=== PATIENT | female | born 1945 | race Caucasian/White ===

== ENCOUNTER 2018-01-29 18:03 | Emergency (ER) | payer SELFPAY ==
[~2018-01-29] VITALS: Ht 152.4 cm; Wt 80.0 kg
[2018-01-29] MEDS ORDERED: insulin (18:26)
[2018-01-29] MEDS ORDERED: TAMO10TA4 PO (18:26)
[2018-01-29] MEDS ORDERED: BENA5TAB6 PO (18:26)
[2018-01-29] MEDS ORDERED: SODIUM CHLORIDE 0.9% 1,000 ML IV ONE (19:19)
[2018-01-29] MEDS ORDERED: ONDANSETRON HCL 4MG/2ML VIAL IV STA (19:19)
[2018-01-29] MEDS ORDERED: ONDANSETRON HCL 4MG/2ML VIAL IV ONE (19:30)
[2018-01-29 22:20] VITALS: BP 166/62
== END 2018-01-29 22:55 | disposition home or self-care (01) ==
LOC: ER 18:03
DX: R51 Headache (principal); R42 Dizziness and giddiness; M79.602 Pain in left arm
CPT/HCPCS: 70450; 72125; 96361; 96374; 99284; J7030; Z7610; J2405

== ENCOUNTER 2018-10-16 10:06 | Inpatient (IN) | payer MEDICARE, MEDICAID ==
[~2018-10-16] VITALS: Ht 152.4 cm; Wt 68.0 kg
[~2018-10-16 10:06] MED LIST: BENA5TAB6 PO; TAMO10TA4 PO; insulin
[2018-10-16 11:34] LABS: BASOPHILS % 0.9 % (0.0-2.0); EOSINOPHILS % 1.6 % (0.0-5.0); HEMATOCRIT. 39.2 % (36.0-48.0); HEMOGLOBIN. 12.6 g/dL (12.0-16.0); LYMPHOCYTES % 20.3 % (20.0-50.0); MEAN CORPUSCULAR HEMOGLOBIN 26.2 pg (28.0-32.0); MEAN CORPUSCULAR VOLUME 81.6 fL (81.0-99.0); MEAN PLATELET VOLUME 8.7 fl (7.4-10.4); MONOCYTES % 4.7 % (2.0-8.0); NEUTROPHILS % 72.5 % (40.0-76.0); PLATELET 247 x1000/uL (130-400); RED BLOOD CELL COUNT 4.81 mill/uL (4.2-5.4); RED CELL DISTRIBUTION WIDTH 14.4 % (11.6-14.6)
[2018-10-16 11:41] LABS: CHLORIDE 105 mEq/L (98-107)
[2018-10-16 11:47] LABS: ETHANOL BLOOD < 10 mg/dL
[2018-10-16 11:52] LABS: CLARITY URINE CLEAR (CLEAR); COLOR URINE YELLOW (YELLOW); KETONES URINE NEGATIVE (NEGATIVE); LEUKOCYTE ESTERASE URINE TRACE (NEGATIVE); NITRITE URINE NEGATIVE (NEGATIVE); OCCULT BLOOD URINE TRACE (NEGATIVE); PROTEIN URINE NEGATIVE (NEGATIVE); SPECIFIC GRAVITY URINE 1.032 (1.005-1.030); UROBILINOGEN URINE 0.2 E.U./dL (0.2-1.0)
[2018-10-16 12:42] LABS: *AMPHETAMINES SCREEN URINE NEGATIVE (NEGATIVE); *BARBITURATES SCREEN URINE NEGATIVE (NEGATIVE)
[2018-10-16 12:43] LABS: *BENZODIAZEPINES SCREEN URINE NEGATIVE (NEGATIVE); *COCAINE SCREEN URINE NEGATIVE (NEGATIVE); OPIATES URINE SCREEN NEGATIVE (NEGATIVE); PHENCYCLIDINE URINE SCREEN NEGATIVE (NEGATIVE)
[2018-10-16 12:44] LABS: CANNABINOID URINE SCREEN NEGATIVE (NEGATIVE)
[2018-10-16 12:45] LABS: METHADONE URINE SCREEN NEGATIVE (NEGATIVE)
[2018-10-16] MEDS ORDERED: CEFTRIAXONE 1 G PREMIX 50 ML IV ONE (13:30)
[2018-10-16 15:50] VITALS: BP 136/58
[2018-10-16 16:00] VITALS: BP 136/58
[2018-10-16] MEDS ORDERED: PNEUMOCOCCAL 23-VAL P-SAC VAC 0.5 ML IM ONE (16:15)
[2018-10-16] MEDS ORDERED: ATOR20TA65 PO (16:23)
[2018-10-16] MEDS ORDERED: EMPA1TAB11 PO (16:23)
[2018-10-16] MEDS ORDERED: AMLO10TA80 PO (16:23)
[2018-10-16] MEDS ORDERED: BENA40TA9 PO (16:23)
[2018-10-16] MEDS ORDERED: INSU200I4 SQ (16:23)
[2018-10-16] MEDS ORDERED: NA PHOS,M-B/NA PHOS,DI-BA ENEMA 118ML PR PRN (18:00)
[2018-10-16] MEDS ORDERED: IPRATROPIUM/ALBUTEROL 0.5-3(2.5)MG/3ML NEB INH PRN (18:00)
[2018-10-16] MEDS ORDERED: MAGNESIUM/ALUMINUM HYDROXIDE/SIMETHICONE 30ML UDC PO PRN (18:00)
[2018-10-16] MEDS ORDERED: ACETAMINOPHEN 325MG TABLET PO PRN (18:00)
[2018-10-16] MEDS ORDERED: HYDROCODONE/ACETAMINOPHEN 10/325MG TABLET PO PRN (18:00)
[2018-10-16] MEDS ORDERED: DIPHENHYDRAMINE 50MG/ML VIAL IV PRN (18:00)
[2018-10-16] MEDS ORDERED: LORAZEPAM 2MG/ML CPJ IV PRN (18:00)
[2018-10-16] MEDS ORDERED: CLONIDINE 0.1MG TABLET PO PRN (18:00)
[2018-10-16] MEDS ORDERED: DOCUSATE SODIUM 100MG CAPSULE PO PRN (18:00)
[2018-10-16] MEDS ORDERED: DEXTROSE 50% WATER 50ML SYRINGE IV PRN (18:00)
[2018-10-16] MEDS ORDERED: GUAIFENESIN 200MG/10ML SUGAR FREE UDC PO PRN (18:00)
[2018-10-16] MEDS ORDERED: HYDROMORPHONE HCL/PF 2MG/ML CPJ IV PRN (18:00)
[2018-10-16] MEDS ORDERED: HYDRALAZINE 20MG/ML VIAL IV PRN (18:00)
[2018-10-16] MEDS ORDERED: ONDANSETRON HCL 4MG/2ML INJ IV PRN (18:00)
[2018-10-16] MEDS ORDERED: ENOXAPARIN 40MG/0.4ML SYR SUBCUT SCH (19:00)
[2018-10-16 20:00] VITALS: BP 145/51
[2018-10-16] MEDS: BLOOD SUGAR DIAGNOSTIC STRIP TEST SCH (20:29)
[2018-10-16] MEDS: SODIUM CHLORIDE 0.9% INJ 3ML FLUSH IVF SCH (20:53)
[2018-10-16] MEDS ORDERED: INSULIN LISPRO 100 UNITS/ML SUBCUT SCH (21:00)
[2018-10-16] MEDS ORDERED: INSULIN LISPRO 100 UNITS/ML SUBCUT NR (21:30)
[2018-10-16 23:07] LABS: CREATINE KINASE 51 IU/L (26-192)
[2018-10-16 23:08] LABS: CREATINE KINASE MB FRACTION < 1.0 ng/mL (0.5-3.6)
[2018-10-17] VITALS (7 sets, daily range): BP systolic 130–169; BP diastolic 48–71
[2018-10-17 06:25] LABS: BASOPHILS % 0.5 % (0.0-2.0); EOSINOPHILS % 2.6 % (0.0-5.0); HEMATOCRIT. 42.8 % (36.0-48.0); HEMOGLOBIN. 13.7 g/dL (12.0-16.0); LYMPHOCYTES % 41.6 % (20.0-50.0); MEAN CORPUSCULAR HEMOGLOBIN 26.1 pg (28.0-32.0); MEAN CORPUSCULAR VOLUME 81.4 fL (81.0-99.0); MEAN PLATELET VOLUME 9.3 fl (7.4-10.4); MONOCYTES % 8.3 % (2.0-8.0); PLATELET 270 x1000/uL (130-400); RED BLOOD CELL COUNT 5.25 mill/uL (4.2-5.4); RED CELL DISTRIBUTION WIDTH 14.4 % (11.6-14.6)
[2018-10-17 06:44] LABS: CHLORIDE 107 mEq/L (98-107)
[2018-10-17] MEDS: BLOOD SUGAR DIAGNOSTIC STRIP TEST SCH ×3 (06:47→17:04)
[2018-10-17] MEDS: INSULIN LISPRO 100 UNITS/ML SUBCUT SCH ×2 (06:48→12:31)
[2018-10-17 07:00] LABS: CREATINE KINASE MB FRACTION < 1.0 ng/mL (0.5-3.6)
[2018-10-17 07:01] LABS: LDL CHOLESTEROL 93 mg/dL (5-100)
[2018-10-17 07:02] LABS: CREATINE KINASE 53 IU/L (26-192); HDL CHOLESTEROL 50 mg/dL (40-59); T4 FREE 1.16 ng/dL (0.76-1.46)
[2018-10-17] MEDS: SODIUM CHLORIDE 0.9% INJ 3ML FLUSH IVF SCH ×2 (07:43→13:45)
[2018-10-17] MEDS ORDERED: ASPIRIN 81MG EC TABLET PO SCH (09:00)
== END 2018-10-17 18:25 | disposition home or self-care (01) | DRG 690 ==
LOC: ER 10:18 → 5WST 13:32 → ENRESERV 14:15
PROVIDERS: ADMIT Internal Medicine; ATTEND Internal Medicine
DX: N39.0 Urinary tract infection, site not specified (principal); G45.9 Transient cerebral ischemic attack, unspecified; I67.82 Cerebral ischemia; E78.00 Pure hypercholesterolemia, unspecified; E78.5 Hyperlipidemia, unspecified; I10 Essential (primary) hypertension; E11.65 Type 2 diabetes mellitus with hyperglycemia; Z79.4 Long term (current) use of insulin; Z79.899 Other long term (current) drug therapy
CPT/HCPCS: 36415; 71045; 80061; 80305; 80320; 82550; 82553; 82962; 83880; 84439; 84443; 84484; 90732; 93005; 96374; 99285; J0696; J1650; J1815; G0480

== ENCOUNTER 2021-09-23 04:43 | Emergency (ER) | payer MEDICARE, MEDICAID ==
[~2021-09-23] VITALS: Ht 154.9 cm; Wt 70.9 kg
[~2021-09-23 04:43] MED LIST changes: +AMLO10TA80 PO; +ATOR20TA65 PO; +BENA40TA9 PO; -BENA5TAB6 PO; +EMPA1TAB11 PO; +INSU200I4 SQ; -TAMO10TA4 PO; -insulin
[2021-09-23] MEDS ORDERED: LIDOCAINE 5% PATCH TOP SCH (05:30)
[2021-09-23] MEDS ORDERED: METHOCARBAMOL 750MG TABLET PO SCH (05:30)
[2021-09-23] MEDS ORDERED: KETOROLAC 60MG/2ML VIAL IM ONE (05:30)
[2021-09-23] MEDS ORDERED: HYDROCODONE/ACETAMINOPHEN 5/325MG TABLET PO ONE (05:30)
[2021-09-23] MEDS ORDERED: METH-653 MT (07:26)
[2021-09-23] MEDS ORDERED: LIDO1ADH23 TP (07:26)
[2021-09-23 08:15] VITALS: BP 125/86
[2021-09-24] MEDS ORDERED: BARIUM SULFATE 176 GM SUSP.RECON ONE (15:48)
== END 2021-09-23 08:22 | disposition home or self-care (01) ==
LOC: ER 04:43
DX: M54.42 Lumbago with sciatica, left side (principal); E11.9 Type 2 diabetes mellitus without complications; E78.00 Pure hypercholesterolemia, unspecified; I10 Essential (primary) hypertension; Z79.899 Other long term (current) drug therapy
CPT/HCPCS: 96372; 99284; J1885

== ENCOUNTER 2023-02-16 06:07 | Emergency (ER) | payer MEDICARE, MEDICAID ==
[~2023-02-16] VITALS: Ht 157.5 cm; Wt 69.0 kg
[~2023-02-16 06:07] MED LIST changes: +ASPI-1160 PO; -BENA40TA9 PO; +BENA40TA91 PO; +LIDO1ADH23 TP
[2023-02-16 06:18] VITALS: BP 145/48; PULSE 64; RESP 16; TEMP 98.3; O2SAT 100
== END 2023-02-16 09:13 | disposition home or self-care (01) ==
LOC: ER 06:07
DX: R41.82 Altered mental status, unspecified (principal); E11.9 Type 2 diabetes mellitus without complications; I10 Essential (primary) hypertension
CPT/HCPCS: 99283